=== PATIENT | female | born 1985 | race Caucasian/White ===

== ENCOUNTER 2022-08-31 23:42 | Outpatient (REF) | payer MEDICAID, SELFPAY ==
[2022-09-01 20:38] LABS: COVID-19 RT-PCR UVMMC Result Negative (Negative)
== END 2022-08-31 23:43 | disposition home or self-care (01) ==
LOC: LBN 23:42
PROVIDERS: PCP Family Medicine; Visit Provider Nurse Practitioner Family
DX: Z20.822 Contact with and (suspected) exposure to COVID-19 (principal)
CPT/HCPCS: U0003

== ENCOUNTER 2024-05-05 10:52 | Outpatient (CLI) | payer SELFPAY ==
[2024-05-05 10:50] LABS: Mono Screening Negative (Negative)
== END 2024-05-05 10:53 | disposition home or self-care (01) ==
LOC: LBO 10:56 → LBN 15:16
PROVIDERS: PCP Family Medicine; Visit Provider Student in an Organized Health Care Education/Training Program
DX: J02.9 Acute pharyngitis, unspecified (principal); R53.83 Other fatigue
CPT/HCPCS: 36415; 86308; 87070

== ENCOUNTER 2025-01-25 10:34 | Outpatient (REF) | payer SELFPAY ==
[2025-01-29 11:51] LABS: Mono Screening Negative (Negative)
== END 2025-01-25 10:35 | disposition home or self-care (01) ==
LOC: LBN 10:34
PROVIDERS: PCP Family Medicine; Visit Provider Nurse Practitioner Adult Health
DX: J02.0 Streptococcal pharyngitis (principal)
CPT/HCPCS: 86308

== ENCOUNTER 2025-02-27 09:39 | Outpatient (CLI) | payer OTHER, SELFPAY ==
[2025-02-27 09:22] LABS: Abs Immature Grans 0.02 10^3/uL (0.0-0.06); Absolute Basophil Count 0.07 10^3/uL (0.0-0.2); Absolute Eosinophil Count 0.45 10^3/uL (0.0-0.7); Absolute Monocyte Count 0.71 10^3/uL (0.1-0.8); Absolute Neutrophil Count 5.49 10^3/uL (1.2-6.7); Basophils % 0.8 %; Eosinophils % 5.3 %; HCT 41.1 % (36.0-46.0); HGB 12.9 g/dL (11.2-15.7); Immature Grans % 0.2 %; Lymphocytes % 20.1 %; MCH 27.2 pg (27.0-33.0); MCHC 31.4 % (32.0-36.0); MCV 87 fL (80-95); Monocytes % 8.4 %; Neutrophils % 65.2 %; Platelet Count 234 10^3/uL (130-400); RBC 4.74 10^6/uL (3.93-5.22); RDW 13.8 % (11.7-14.6); RDW-SD 44.1 fL; WBC 8.44 10^3/uL (4.4-10.8)
[2025-02-27 09:46] LABS: Mono Screening Negative (Negative)
[2025-02-27 09:58] LABS: Hemoglobin A1C 5.3 % (<5.7)
[2025-02-27 10:31] LABS: ALT 18 U/L (14-59); AST 14 U/L (15-37); Albumin 3.6 g/dL (3.4-5.0); Alkaline Phosphatase 84 U/L (46-116); BUN 14 mg/dL (7-18); Bilirubin, Total 0.4 mg/dL (0.2-1.0); CREATININE 0.8 mg/dL (0.55-1.02); Calcium 8.9 mg/dL (8.5-10.1); Chloride 103 mmol/L (98-107); Estimated GFR 95.46 (mL/min/1.73m2); Ferritin 18 ng/mL (8-252); Glucose 80 mg/dL (74-106); PHOSPHORUS 3.1 mg/dL (2.6-4.7); Potassium 3.9 mmol/L (3.5-5.1); Sodium 138 mmol/L (136-145); TSH (W/Ref FT4) 1.48 uIU/mL (0.36-3.74); Total Protein 7.2 g/dL (6.4-8.2)
[2025-02-27 10:33] LABS: Folate > 20.0 ng/mL (8.6-20.0)
[2025-02-27 20:52] LABS: Vitamin D 25 Total 56 ng/mL (30-100)
[2025-02-27 21:02] LABS: Iron 36 ug/dL (50-170); Total Iron Binding Capacity 346 ug/dL (250-450); Transferrin Sat 10 % (15-50)
[2025-02-27 21:18] LABS: Calculated LDL 80 mg/dL (<100); Cholesterol 162 mg/dL (<200); HDL Cholesterol 63 mg/dL (>or=50); Triglyceride 99 mg/dL (<150); Vitamin B12 1320 pg/mL (193-986)
[2025-03-01 15:33] LABS: Copper, Serum 102 mcg/dL (77-206)
[2025-03-02 15:55] LABS: Thiamine (Vitamin B1), WB 123 nmol/L (70-180)
== END 2025-02-27 09:40 | disposition home or self-care (01) ==
LOC: LBO 09:42
PROVIDERS: Nurse Practitioner Adult Health; PCP Family Medicine; Visit Provider Registered Nurse
DX: J02.0 Streptococcal pharyngitis (principal); Z98.0 Intestinal bypass and anastomosis status
CPT/HCPCS: 36415; 80053; 80061; 82306; 82525; 82607; 82728; 82746; 83036; 83540; 83550; 84100; 84425; 84443; 85025; 86308

== ENCOUNTER 2025-03-08 02:25 | Outpatient (CLI) | payer OTHER, SELFPAY ==
--- NOTE | 2025-03-08 08:13 | DI.MAMMO_ITS ---
Exam(s) MAMMO SCREENING EXAM: MAMMO SCREENING CLINICAL HISTORY: Screening, Z12.31 TECHNIQUE: Mammograms were interpreted according to the usual protocol including computer analysis w [employer] CAD system, tomosynthesis and C-view imaging. COMPARISON: None. Baseline examination. FINDINGS: The breasts are composed of heterogeneously dense fibroglandular densities, Breast Density category C . No suspicious masses or suspicious microcalcifications are seen. No skin thickening or abnormal axillary lymph nodes are seen. IMPRESSION: BI-RADS Category 1, Negative mammogram. Yearly screening mammography is recommended. Breast Density Category C, heterogeneously Dense. Breast density Category C or D implies that the patient has dense breast tissue. Dense breast tissue can make it harder to find cancer on a mammogram. Dense breast tissue is also associated with an incr eased risk of breast cancer. This information about the result of the mammogram report was provided to the patient to raise their awareness. Use this report when you speak with the patient about their risks for breast cancer, which includes their family history. At that time, you may recommend additional screening tests (Ultrasoun d or MRI) as these tests may add significant information. A negative radiographic report should not delay biopsy if a dominant or clinically suspicious mass is present. Up to ten percent of cancers are not identified on mammography. A negative report may reinforce clinical impression. Adenosis and dense breasts may obscure an underlying neoplasm. False positive reports average 6 to 10%.
== END 2025-03-08 02:45 ==
LOC: DI 02:25
PROVIDERS: PCP Family Medicine; Visit Provider Registered Nurse
DX: Z12.31 Encounter for screening mammogram for malignant neoplasm of breast (principal); R92.323 Mammographic fibroglandular density, bilateral breasts
CPT/HCPCS: 77063; 77067